=== PATIENT | male | born 2000 | race Caucasian/White ===

== ENCOUNTER 2021-09-04 07:21 | Emergency (ER) | payer BC, MEDICAID, OTHER ==
[2021-09-04 08:06] LABS: ANION GAP 11.1 meq/L (7-15); CHLORIDE,CL 104 mmol/L (98-107); SODIUM,NA 140 mmol/L (136-145)
[2021-09-04 08:18] LABS: BARBITURATE SCREEN,URINE NEGATIVE (NEGATIVE); BENZODIAZEPINES SCREEN,URINE NEGATIVE (NEGATIVE); EDDP,URINE SCREEN NEGATIVE (NEGATIVE); TCA SCREEN,URINE NEGATIVE (NEGATIVE); THC SCREEN,URINE 50 NG/ML NEGATIVE (NEGATIVE)
[2021-09-04] MEDS ORDERED: Ketorolac 60 MG/2 ML SDV IM ONE (08:23)
[2021-09-04] MEDS ORDERED: SUMAtriptan 6 MG/0.5 ML SDV SUBCUT ONE (08:23)
[2021-09-04] MEDS ORDERED: Meclizine 25 MG Tab PO ONE (08:23)
[2021-09-04 08:24] LABS: BUPRENORPHINE SCREEN,URINE NEGATIVE (NEGATIVE)
[2021-09-04] MEDS ORDERED: Ketorolac 30 MG/ML SDV IM ONE (08:45)
== END 2021-09-04 09:40 | disposition home or self-care (01) ==
LOC: LL.ED 07:21
DX: G43.009 Migraine without aura, not intractable, without status migrainosus (principal); R79.89 Other specified abnormal findings of blood chemistry; E66.9 Obesity, unspecified; Z68.30 Body mass index [BMI] 30.0-30.9, adult; Z91.09 Other allergy status, other than to drugs and biological substances
CPT/HCPCS: 36415; 80053; 80305-QW; 81003; 85025; 96372; 99284; A9270-GY; J1885; J3030